=== PATIENT | female | born 1945 | race African-American/Black ===

== ENCOUNTER 2016-11-23 16:38 | Emergency (ER) | payer OTHER, MEDICAID ==
[~2016-11-23] VITALS: Ht 167.6 cm; Wt 91.0 kg
[~2016-11-23 16:38] MED LIST: AMLO5TAB4 PO; ASPIRIN PO; Metoprolol Tartrate PO; NITROSTAT SUBCUT/PO; OMEP20CA10 PO; OYST CAL D PO; SIMV20TA6 PO; TRAM50TA3 PO
[2016-11-23] MEDS ORDERED: ACETAMINOPHEN WITH CODEINE 300/30MG TABLET PO ONE (18:00)
[2016-11-23] MEDS ORDERED: METHOCARBAMOL 500MG TABLET PO ONE (18:00)
[2016-11-23] MEDS ORDERED: KETOROLAC 60MG/2ML VIAL IM ONE (18:00)
[2016-11-23 21:30] VITALS: BP 145/83
== END 2016-11-23 22:05 | disposition home or self-care (01) ==
LOC: ER 16:38
DX: M54.12 Radiculopathy, cervical region (principal); I10 Essential (primary) hypertension; M19.90 Unspecified osteoarthritis, unspecified site; I50.9 Heart failure, unspecified; Z95.0 Presence of cardiac pacemaker; Z79.82 Long term (current) use of aspirin
CPT/HCPCS: 72040; 96372; 99284; J1885

== ENCOUNTER 2017-07-20 08:00 | Emergency (ER) | payer OTHER, MEDICAID ==
[~2017-07-20] VITALS: Ht 167.6 cm; Wt 86.0 kg
[2017-07-20] MEDS ORDERED: ONDANSETRON HCL 4MG/2ML VIAL IV STA (08:43)
[2017-07-20] MEDS ORDERED: MORPHINE SULFATE 4 MG/ML CPJ (NOT FOR IM USE) IV STA (08:43)
[2017-07-20 09:12] LABS: BASOPHILS % 0.9 % (0.0-2.0); EOSINOPHILS % 2.2 % (0.0-5.0); HEMATOCRIT. 43.9 % (36.0-48.0); HEMOGLOBIN. 15.1 g/dL (12.0-16.0); LYMPHOCYTES % 36.2 % (20.0-50.0); MEAN CORPUSCULAR HEMOGLOBIN 31.2 pg (28.0-32.0); MEAN CORPUSCULAR VOLUME 90.4 fL (81.0-99.0); MEAN PLATELET VOLUME 8.2 fl (7.4-10.4); MONOCYTES % 9.5 % (2.0-8.0); NEUTROPHILS % 51.2 % (40.0-76.0); PLATELET 209 x1000/uL (130-400); RED BLOOD CELL COUNT 4.85 mill/uL (4.2-5.4); RED CELL DISTRIBUTION WIDTH 13.6 % (11.6-14.6)
[2017-07-20 09:24] LABS: D-DIMER 0.54 mg/L FEU (<0.50); INR 1.1
[2017-07-20 09:29] LABS: CARBON DIOXIDE 31 mEq/L (21-32); CHLORIDE 104 mEq/L (98-107); TROPONIN I < 0.02 ng/mL (0.00-0.04)
[2017-07-20] MEDS ORDERED: IOHEXOL-350 100 ML BOTTLE ONE (10:58)
[2017-07-20 14:32] VITALS: BP 130/70
== END 2017-07-20 14:33 | disposition home or self-care (01) ==
LOC: ER 08:08
DX: M79.1 Myalgia (principal); E78.00 Pure hypercholesterolemia, unspecified; Z95.0 Presence of cardiac pacemaker; Z79.82 Long term (current) use of aspirin; Z90.710 Acquired absence of both cervix and uterus
CPT/HCPCS: 36415; 71010; 71275; 80053; 83690; 83880; 84484; 85025; 85379; 85610; 85730; 93005; 96374; 96375; 99285; J2270; J2405; Q9967

== ENCOUNTER 2017-11-06 08:00 | Emergency (ER) | payer OTHER, MEDICAID ==
[~2017-11-06] VITALS: Ht 165.1 cm; Wt 95.0 kg
[2017-11-06 08:49] LABS: BASOPHILS % 0.7 % (0.0-2.0); EOSINOPHILS % 2.5 % (0.0-5.0); HEMATOCRIT. 44.3 % (36.0-48.0); LYMPHOCYTES % 36.7 % (20.0-50.0); MEAN CORPUSCULAR HEMOGLOBIN 30.3 pg (28.0-32.0); MEAN CORPUSCULAR VOLUME 89.5 fL (81.0-99.0); MEAN PLATELET VOLUME 8.3 fl (7.4-10.4); MONOCYTES % 9.1 % (2.0-8.0); PLATELET 241 x1000/uL (130-400); RED BLOOD CELL COUNT 4.95 mill/uL (4.2-5.4); RED CELL DISTRIBUTION WIDTH 13.4 % (11.6-14.6)
[2017-11-06 08:55] LABS: INR 1.1; PROTHROMBIN TIME 11.4 sec (9.4-11.6)
[2017-11-06 08:59] LABS: CHLORIDE 103 mEq/L (98-107)
[2017-11-06 09:04] LABS: TROPONIN I < 0.02 ng/mL (0.00-0.04)
[2017-11-06] MEDS ORDERED: ALBUTEROL (0.083%) 2.5MG/3ML NEB HHN STA (09:37)
[2017-11-06 10:50] VITALS: BP 143/70
== END 2017-11-06 10:57 | disposition home or self-care (01) ==
LOC: ER 08:00
DX: B34.9 Viral infection, unspecified (principal); E78.00 Pure hypercholesterolemia, unspecified; Z79.82 Long term (current) use of aspirin; Z87.891 Personal history of nicotine dependence; Z95.0 Presence of cardiac pacemaker; Z90.710 Acquired absence of both cervix and uterus
CPT/HCPCS: 36415; 71045; 80053; 83880; 84484; 85025; 85610; 93005; 99285; J7611

== ENCOUNTER 2018-11-12 16:23 | Emergency (ER) | payer OTHER, MEDICAID ==
[~2018-11-12] VITALS: Ht 167.6 cm; Wt 86.0 kg
[2018-11-12] MEDS ORDERED: ONDANSETRON HCL 4MG/2ML INJ IV STA (18:12)
[2018-11-12] MEDS ORDERED: MAGNESIUM/ALUMINUM HYDROXIDE/SIMETHICONE 30ML UDC PO ONE (18:15)
[2018-11-12] MEDS ORDERED: VISCOUS LIDOCAINE 2% 15 ML UDC PO ONE (18:15)
[2018-11-12] MEDS ORDERED: ASPIRIN 81MG TABLET PO ONE (18:15)
[2018-11-12 18:44] LABS: BASOPHILS % 1.2 % (0.0-2.0); EOSINOPHILS % 2.5 % (0.0-5.0); HEMATOCRIT. 43.9 % (36.0-48.0); HEMOGLOBIN. 14.9 g/dL (12.0-16.0); LYMPHOCYTES % 37.4 % (20.0-50.0); MEAN CORPUSCULAR HEMOGLOBIN 30.8 pg (28.0-32.0); MEAN CORPUSCULAR VOLUME 90.9 fL (81.0-99.0); MEAN PLATELET VOLUME 7.9 fl (7.4-10.4); MONOCYTES % 9.6 % (2.0-8.0); NEUTROPHILS % 49.3 % (40.0-76.0); PLATELET 225 x1000/uL (130-400); RED BLOOD CELL COUNT 4.83 mill/uL (4.2-5.4); RED CELL DISTRIBUTION WIDTH 13.6 % (11.6-14.6)
[2018-11-12 18:50] LABS: CHLORIDE 103 mEq/L (98-107)
[2018-11-12 21:20] VITALS: BP 147/72
== END 2018-11-12 21:30 | disposition home or self-care (01) ==
LOC: ER 16:23
DX: R07.9 Chest pain, unspecified (principal); E78.00 Pure hypercholesterolemia, unspecified; I51.9 Heart disease, unspecified; I51.7 Cardiomegaly; Z95.0 Presence of cardiac pacemaker; Z79.82 Long term (current) use of aspirin; Z90.710 Acquired absence of both cervix and uterus
CPT/HCPCS: 36415; 71045; 80053; 83880; 84484; 85025; 93005; 96374; 99284; J2405

== ENCOUNTER 2019-05-26 12:05 | Emergency (ER) | payer OTHER, MEDICAID ==
[~2019-05-26] VITALS: Ht 167.6 cm; Wt 90.0 kg
[~2019-05-26 12:05] MED LIST changes: -OMEP20CA10 PO; +OMEP20CA5 PO
[2019-05-26] MEDS ORDERED: ASPIRIN 81MG TABLET PO ONE (13:15)
[2019-05-26 14:01] LABS: EOSINOPHILS % 2.1 % (0.0-5.0); HEMATOCRIT. 45.8 % (36.0-48.0); HEMOGLOBIN. 15.7 g/dL (12.0-16.0); LYMPHOCYTES % 42.9 % (20.0-50.0); MEAN CORPUSCULAR HEMOGLOBIN 30.9 pg (28.0-32.0); MEAN CORPUSCULAR VOLUME 90.3 fL (81.0-99.0); MEAN PLATELET VOLUME 8.4 fl (7.4-10.4); MONOCYTES % 10.1 % (2.0-8.0); NEUTROPHILS % 43.9 % (40.0-76.0); PLATELET 214 x1000/uL (130-400); RED BLOOD CELL COUNT 5.08 mill/uL (4.2-5.4); RED CELL DISTRIBUTION WIDTH 13.9 % (11.6-14.6)
[2019-05-26 14:04] LABS: CHLORIDE 108 mEq/L (98-107)
[2019-05-26 17:14] VITALS: BP 137/71
== END 2019-05-26 17:05 | disposition home or self-care (01) ==
LOC: ER 12:05
DX: R07.9 Chest pain, unspecified (principal); E78.00 Pure hypercholesterolemia, unspecified; I10 Essential (primary) hypertension; Z95.0 Presence of cardiac pacemaker; Z79.82 Long term (current) use of aspirin; Z90.710 Acquired absence of both cervix and uterus
CPT/HCPCS: 36415; 71045; 84484; 93005; 99284

== ENCOUNTER 2020-02-23 03:10 | Inpatient (IN) | payer OTHER, MEDICAID ==
[~2020-02-23] VITALS: Ht 167.6 cm; Wt 85.7 kg
[~2020-02-23 03:10] MED LIST changes: +LEVO500T2 MT; +OMEP20CA14 PO; -OMEP20CA5 PO; +SIMV-43 PO; -SIMV20TA6 PO
[2020-02-23] MEDS ORDERED: FUROSEMIDE 40MG/4ML VIAL IV ONE (03:45)
[2020-02-23] MEDS ORDERED: NITROGLYCERIN OINT 1GM/INCH UDPKT TD ONE (03:45)
[2020-02-23 03:47] LABS: EOSINOPHILS % 3.2 % (0.0-5.0); HEMATOCRIT. 45.1 % (36.0-48.0); HEMOGLOBIN. 15.2 g/dL (12.0-16.0); LYMPHOCYTES % 46.8 % (20.0-50.0); MEAN CORPUSCULAR HEMOGLOBIN 31.2 pg (28.0-32.0); MEAN PLATELET VOLUME 9.8 fl (7.4-10.4); PLATELET 168 x1000/uL (130-400); RED BLOOD CELL COUNT 4.86 mill/uL (4.2-5.4); RED CELL DISTRIBUTION WIDTH 14.6 % (11.6-14.6)
[2020-02-23 03:51] LABS: CHLORIDE 111 mEq/L (98-107)
[2020-02-23 03:57] LABS: BG BASE EXCESS -2.9 mmol/L (-2.0-2.0); BG CARBOXYHEMOGLOBIN 0.8 % (0.5-1.5); BG DEOXYHEMOGLOBIN 4.5 % (0.0-5.0); BG FRACTION INSPIRED OXYGEN 32; BG HCO3 ACT 22.1 mmol/L (22.0-26.0); BG OXYGEN SATURATION 95.5 % (92.0-98.5); BG OXYHEMOGLOBIN 94.7 % (94.0-97.0); BG PCO2 39.6 mmHg (35.0-45.0); BG PH 7.365 (7.350-7.450); BG PO2 78.7 mmHg (75.0-100.0); BG SAMPLE SITE RIGHT RADIAL; BG TOTAL HEMOGLOBIN 14.5 g/dL (12.0-18.0); BG VENT MODE NASAL CANNULA
[2020-02-23] MEDS ORDERED: AZITHROMYCIN 500 MG in DEXT 5% WATER 250 ML IV ONE (06:15)
[2020-02-23] MEDS ORDERED: CEFTRIAXONE 1 G PREMIX 50 ML IV ONE (06:15)
[2020-02-23] MEDS ORDERED: LORAZEPAM 0.5MG TABLET PO PRN (11:30)
[2020-02-23] MEDS ORDERED: HYDROCODONE/ACETAMINOPHEN 5/325MG TABLET PO PRN (11:30)
[2020-02-23] MEDS ORDERED: GUAIFENESIN 200MG/10ML SUGAR FREE UDC PO PRN (11:30)
[2020-02-23] MEDS ORDERED: ACETAMINOPHEN 325MG TABLET PO PRN (11:30)
[2020-02-23] MEDS ORDERED: DIPHENHYDRAMINE 50MG/ML VIAL IV PRN (11:30)
[2020-02-23] MEDS ORDERED: ACETAMINOPHEN 650MG SUPP PR PRN (11:30)
[2020-02-23] MEDS ORDERED: DOCUSATE SODIUM 100MG CAPSULE PO PRN (11:30)
[2020-02-23] MEDS ORDERED: IPRATROPIUM/ALBUTEROL 0.5-3(2.5)MG/3ML NEB NEB PRN (11:30)
[2020-02-23] MEDS ORDERED: MAGNESIUM/ALUMINUM HYDROXIDE/SIMETHICONE 30ML UDC PO PRN (11:30)
[2020-02-23] MEDS ORDERED: CLONIDINE 0.1MG TABLET PO PRN (11:30)
[2020-02-23] MEDS ORDERED: ONDANSETRON HCL 4MG/2ML INJ IV PRN (11:30)
[2020-02-23 12:00] VITALS: BP 135/85
[2020-02-23] MEDS ORDERED: REGADENOSON 0.4 MG/5 ML IV SCH (13:00)
[2020-02-23] MEDS: ENOXAPARIN 40MG/0.4ML SYR SUBCUT SCH (14:04)
[2020-02-23 16:00] VITALS: BP 129/80
[2020-02-23 20:00] VITALS: BP 116/74
[2020-02-23] MEDS: AMLODIPINE 2.5MG TABLET PO SCH (20:55)
[2020-02-23] MEDS ORDERED: ATORVASTATIN CALCIUM 10MG TABLET PO SCH (21:00)
[2020-02-23] MEDS ORDERED: FAMOTIDINE 20MG TABLET PO SCH (21:00)
[2020-02-23 23:33] LABS: *AMPHETAMINES SCREEN URINE NEGATIVE (NEGATIVE); *BARBITURATES SCREEN URINE NEGATIVE (NEGATIVE); *BENZODIAZEPINES SCREEN URINE NEGATIVE (NEGATIVE); *COCAINE SCREEN URINE NEGATIVE (NEGATIVE)
[2020-02-23 23:34] LABS: CREATINE KINASE MB FRACTION 1.7 ng/mL (0.5-3.6)
[2020-02-23 23:34] LABS: CANNABINOID URINE SCREEN NEGATIVE (NEGATIVE); METHADONE URINE SCREEN NEGATIVE (NEGATIVE); OPIATES URINE SCREEN NEGATIVE (NEGATIVE); PHENCYCLIDINE URINE SCREEN NEGATIVE (NEGATIVE)
[2020-02-24] VITALS: BP 107/71
[2020-02-24 04:00] VITALS: BP 119/83
[2020-02-24 05:46] LABS: CHLORIDE 108 mEq/L (98-107)
[2020-02-24 05:48] LABS: INR 1.1; PROTHROMBIN TIME 11.6 sec (9.6-11.0)
[2020-02-24 05:55] LABS: LDL CHOLESTEROL 77 mg/dL (5-100)
[2020-02-24 05:56] LABS: HDL CHOLESTEROL 47 mg/dL (40-59); T4 FREE 1.11 ng/dL (0.76-1.46)
[2020-02-24 06:34] LABS: BASOPHILS % 0.7 % (0.0-2.0); EOSINOPHILS % 2.2 % (0.0-5.0); HEMATOCRIT. 45.1 % (36.0-48.0); HEMOGLOBIN. 15.2 g/dL (12.0-16.0); MEAN CORPUSCULAR HEMOGLOBIN 31.1 pg (28.0-32.0); MEAN CORPUSCULAR VOLUME 92.3 fL (81.0-99.0); MEAN PLATELET VOLUME 9.6 fl (7.4-10.4); MONOCYTES % 11.3 % (2.0-8.0); NEUTROPHILS % 50.8 % (40.0-76.0); PLATELET 164 x1000/uL (130-400); RED BLOOD CELL COUNT 4.89 mill/uL (4.2-5.4); RED CELL DISTRIBUTION WIDTH 14.8 % (11.6-14.6)
[2020-02-24 08:00] VITALS: BP 135/68
[2020-02-24] MEDS ORDERED: ASPIRIN 81MG EC TABLET PO SCH (09:00)
[2020-02-24] MEDS ORDERED: REGADENOSON 0.4 MG/5 ML IV ONE (09:16)
[2020-02-24] MEDS: AMLODIPINE 2.5MG TABLET PO SCH (10:46)
[2020-02-24] MEDS: ENOXAPARIN 40MG/0.4ML SYR SUBCUT SCH (11:56)
[2020-02-24 12:00] VITALS: BP 128/85
[2020-02-24] MEDS ORDERED: COR3 MT (13:02)
[2020-02-24] MEDS ORDERED: ASPI-1497 MT (13:02)
[2020-02-24] MEDS ORDERED: LOSA25TA3 MT (13:02)
[2020-02-24 15:51] VITALS: BP 127/78
[2020-02-24 16:00] VITALS: BP 127/78
== END 2020-02-24 17:54 | disposition home or self-care (01) | DRG 293 ==
LOC: ER 03:23 → 7WST 04:32 → EDBEDREQ 04:34 → EDBEDREQTM 04:34 → ENRESERV 10:09 → SUPCPDRO 11:25 → 5WST 23:40
PROVIDERS: ADMIT Internal Medicine; ATTEND Internal Medicine
DX: I11.0 Hypertensive heart disease with heart failure (principal); R07.89 Other chest pain; I50.43 Acute on chronic combined systolic (congestive) and diastolic (congestive) heart failure; E78.5 Hyperlipidemia, unspecified; F17.210 Nicotine dependence, cigarettes, uncomplicated; I35.1 Nonrheumatic aortic (valve) insufficiency; I49.5 Sick sinus syndrome; Z20.828 Contact with and (suspected) exposure to other viral communicable diseases; Z79.899 Other long term (current) drug therapy; Z82.3 Family history of stroke; Z82.49 Family history of ischemic heart disease and other diseases of the circulatory system; Z95.0 Presence of cardiac pacemaker
CPT/HCPCS: 36415; 36600; 71045; 78452; 80053; 80061; 80305; 82375; 82550; 82553; 82805; 83036; 83880; 84439; 84443; 84484; 85025; 93005; 93017; 93306; 93970; 97162; 99285; A9500; J0456; J0696; J1650; J1940; J2785; J7060; U0003-CS

== ENCOUNTER 2023-08-15 07:26 | Emergency (ER) | payer OTHER, MEDICAID ==
[~2023-08-15] VITALS: Ht 157.5 cm; Wt 80.0 kg
[~2023-08-15 07:26] MED LIST changes: -AMLO5TAB4 PO; +ASPI-1497 MT; +COR3 MT; -LEVO500T2 MT; +LOSA-412 MT; -Metoprolol Tartrate PO
[2023-08-15 07:30] VITALS: O2SAT 98
[2023-08-15 12:00] LABS: HEMATOCRIT. 39.1 % (36.0-48.0); HEMOGLOBIN. 13.1 g/dL (12.0-16.0); MEAN CORPUSCULAR HEMOGLOBIN 30.6 pg (28.0-32.0); MEAN CORPUSCULAR HGB CONC 33.6 g/dL (31.0-37.0); MEAN CORPUSCULAR VOLUME 91.3 fL (81.0-99.0); MEAN PLATELET VOLUME 8.1 fl (7.4-10.4); PLATELET 268 x1000/uL (130-400); RED BLOOD CELL COUNT 4.29 mill/uL (4.2-5.4); RED CELL DISTRIBUTION WIDTH 14.2 % (11.6-14.6); WHITE BLOOD COUNT 9.1 x1000/uL (4.5-11.0)
[2023-08-15 12:09] LABS: DIFFERENTIAL COMMENT 1
[2023-08-15 12:18] LABS: ALANINE AMINOTRANSFERASE < 7 IU/L (10-49); ALBUMIN 3.8 g/dL (3.2-4.8); ASPARTATE AMINOTRANSFERASE 14 IU/L (<34); BILIRUBIN TOTAL 1.5 mg/dL (0.1-1.0); CALCIUM 9.1 mg/dL (8.7-10.4); CARBON DIOXIDE 27 mEq/L (21-32); CHLORIDE 107 mEq/L (98-107); GLUCOSE 121 mg/dL (70-105); POTASSIUM 3.8 mEq/L (3.5-5.1); PROTEIN TOTAL 7.3 g/dL (6.0-8.3); SODIUM 144 mEq/L (136-145); TROPONIN I HIGH SENSITIVITY 8 ng/L (3.0-34); UREA NITROGEN BLOOD 14 mg/dL (9-23)
[2023-08-15 12:30] LABS: INR 1.1; PROTHROMBIN TIME 12.2 sec (9.6-11.0)
[2023-08-15] MEDS ORDERED: TRAMADOL 50MG TABLET PO ONE (13:15)
[2023-08-15] MEDS ORDERED: KETOROLAC 60MG/2ML VIAL IM ONE (13:15)
[2023-08-15 13:49] LABS: PLATELET ESTIMATE NORMAL
[2023-08-15 18:19] VITALS: BP 132/57; PULSE 79; RESP 16; TEMP 98.1
== END 2023-08-15 18:21 | disposition home or self-care (01) ==
LOC: ER 07:26
DX: M79.672 Pain in left foot (principal); M79.671 Pain in right foot; I10 Essential (primary) hypertension; Z98.890 Other specified postprocedural states
CPT/HCPCS: 99285; 93970; 71045; 80053; 83880; 85025; 85610; 84484; 36415; 73630; 93005; 96372; J1885

== ENCOUNTER 2024-10-09 13:15 | Emergency (ER) | payer MEDICARE, MEDICAID ==
[~2024-10-09] VITALS: Ht 167.6 cm; Wt 82.1 kg
[~2024-10-09 13:15] MED LIST changes: +AMLO2.5T45 PO; -ASPIRIN PO; +CHOL500010 PO; -COR3 MT; -LOSA-412 MT; -NITROSTAT SUBCUT/PO; -OYST CAL D PO; -SIMV-43 PO; -TRAM50TA3 PO
[2024-10-09 13:17] VITALS: O2SAT 98
[2024-10-09 13:25] VITALS: BP 116/85; PULSE 97; RESP 16; TEMP 36.8; O2SAT 100
[2024-10-09] MEDS: LIDOCAINE 5% PATCH TOP SCH (14:18)
[2024-10-09 14:55] LABS: BASOPHILS % 0.7 % (0.0-2.0); EOSINOPHILS % 0.4 % (0.0-5.0); HEMATOCRIT. 43.8 % (36.0-48.0); HEMOGLOBIN. 14.6 g/dL (12.0-16.0); LYMPHOCYTES % 24.8 % (20.0-50.0); MEAN CORPUSCULAR HEMOGLOBIN 31.2 pg (28.0-32.0); MEAN CORPUSCULAR HGB CONC 33.4 g/dL (31.0-37.0); MEAN CORPUSCULAR VOLUME 93.4 fL (81.0-99.0); MEAN PLATELET VOLUME 8.3 fl (7.4-10.4); MONOCYTES % 7.2 % (2.0-8.0); NEUTROPHILS % 66.9 % (40.0-76.0); PLATELET 188 x1000/uL (130-400); RED BLOOD CELL COUNT 4.69 mill/uL (4.2-5.4); RED CELL DISTRIBUTION WIDTH 13.4 % (11.6-14.6); WHITE BLOOD COUNT 4.1 x1000/uL (4.5-11.0)
[2024-10-09 15:01] LABS: CHLORIDE 94 mEq/L (98-107); POTASSIUM 3.5 mEq/L (3.5-5.1); SODIUM 129 mEq/L (136-145)
[2024-10-09 15:02] LABS: CALCIUM 9.6 mg/dL (8.7-10.4); CARBON DIOXIDE 27 mEq/L (21-32)
[2024-10-09 15:07] LABS: CREATININE 1.1 mg/dL (0.6-1.0); GLUCOSE 94 mg/dL (70-105)
[2024-10-09 15:08] LABS: UREA NITROGEN BLOOD 12 mg/dL (9-23)
[2024-10-09 15:09] LABS: ALANINE AMINOTRANSFERASE 11 IU/L (10-49); ALBUMIN 4.3 g/dL (3.2-4.8); ASPARTATE AMINOTRANSFERASE 22 IU/L (<34); BILIRUBIN DIRECT 0.2 mg/dL (<=3.0)
[2024-10-09 15:10] LABS: BILIRUBIN TOTAL 0.6 mg/dL (0.1-1.0); PROTEIN TOTAL 7.2 g/dL (6.0-8.3)
[2024-10-09 15:28] LABS: TROPONIN I HIGH SENSITIVITY < 4 ng/L (3.0-34)
== END 2024-10-09 16:45 | disposition home or self-care (01) ==
LOC: ER 13:15
DX: R07.9 Chest pain, unspecified (principal); M54.9 Dorsalgia, unspecified; E78.00 Pure hypercholesterolemia, unspecified; I10 Essential (primary) hypertension; Z79.899 Other long term (current) drug therapy; Z95.810 Presence of automatic (implantable) cardiac defibrillator
CPT/HCPCS: 36415; 71045; 80048; 80076; 83880; 84484; 85025; 93005; 99285